=== PATIENT | male | born 1980 | race Caucasian/White ===

== ENCOUNTER 2017-05-17 17:36 | Emergency (ER) | payer OTHER ==
[~2017-05-17] VITALS: Ht 188 cm; Wt 110.0 kg
[~2017-05-17 17:36] MED LIST: Z.0.NO CURRENT MEDS
[2017-05-17 18:01] VITALS: BP 142/73; PULSE 104; RESP 17; TEMP 98.2; O2SAT 98
[2017-05-17] MEDS ORDERED: SODIUM CHLOR 0.9% 1000 ML INJ 1,000 ML IV ONE (19:10)
--- NOTE | 2017-05-17 19:12 | PD ---
HPI Chief Complaint: Flank/Kidney Pain Time Seen by Provider: 19:04 Travel History International Travel<30 days: No Contact w/Intl Traveler<30days: No Traveled to known affect area: No History of Present Illness HPI This is a 37-year-old male who presents for evaluation of bilateral flank pain. Symptoms started 4 days ago. The pain is sharp intermittent pain with no aggravating or alleviating factors. He reports that he passed a kidney stone 2 days ago with some relief. He reports a history of multiple kidney stones in the past, once requiring lithotripsy and was requiring ureteral stenting. He endorses a small amount of hematuria in the past 4 days. He endorses nausea. Denies vomiting, testicular scrotal pain, abdominal pain. He has not used any medication for symptom relief. He has no other complaints at this time. [facility] Past Medical History Kidney Stones: Yes Medical other: Yes (umbilical hernia ) Past Surgical History Abdominal Surgery: Yes (hernia ) Appendectomy: Yes Social History Alcohol Use: No Tobacco Use: Yes Substance Use: No Allergies-Medications (Allergen,Severity, Reaction): Coded Allergies: aspirin (Unverified Allergy, Severe, A CHILD, 05/17/17) Penicillins (Verified Allergy, Unknown, takes amoxicillan, 05/17/17) Reported Meds & Prescriptions Reported Meds & Active Scripts Active No Active Prescriptions or Reported Medications Review of Systems Except as stated in HPI: all other systems reviewed are Neg Physical Exam Narrative GENERAL: Well-developed well-nourished male in no acute distress SKIN: Warm and dry. HEAD: Atraumatic. Normocephalic. EYES: Pupils equal and round. No scleral icterus. No injection or drainage. ENT: No nasal bleeding or discharge. Mucous membranes pink and moist. NECK: Trachea midline. No JVD. CARDIOVASCULAR: Regular rate and rhythm. No murmur appreciated. RESPIRATORY: No accessory muscle use. Clear to auscultation. Breath sounds equal bilaterally. GASTROINTESTINAL: Abdomen soft, non-tender, nondistended. Hepatic and splenic margins not palpable. MUSCULOSKELETAL: No obvious deformities. No clubbing. No cyanosis. No edema. Bilateral CVA tenderness is present. NEUROLOGICAL: Awake and alert. No obvious cranial nerve deficits. Motor grossly within normal limits. Normal speech. PSYCHIATRIC: Appropriate mood and affect; insight and judgment normal. Data Data Last Documented VS Vital Signs Date Time Temp Pulse Resp B/P (MAP) Pulse Ox O2 Delivery O2 Flow Rate FiO2 05/17/17 18:01 98.2 104 17 142/73 (96) 98 Orders Orders Complete Blood Count With Diff (05/17/17 19:10) Comprehensive Metabolic Panel (05/17/17 19:10) Urinalysis - C+S If Indicated (05/17/17 19:10) Ct Abd/Pel W/O Iv Contrast (05/17/17 19:10) Ecg Monitoring (05/17/17 19:10) Iv Access Insert/Monitor (05/17/17 19:10) Ketorolac Inj (Toradol Inj) (05/17/17 19:15) Ondansetron Inj (Zofran Inj) (05/17/17 19:15) Sodium Chloride 0.9% Flush (Ns Flush) (05/17/17 19:15) Sodium Chlor 0.9% 1000 Ml Inj (Ns 1000 M (05/17/17 19:10) Labs Laboratory Tests Test 05/17/17 19:27 05/17/17 19:45 White Blood Count 12.7 TH/MM3 Red Blood Count 4.64 MIL/MM3 Hemoglobin 14.5 GM/DL Hematocrit 42.1 % Mean Corpuscular Volume 90.7 FL Mean Corpuscular Hemoglobin 31.2 PG Mean Corpuscular Hemoglobin Concent 34.4 % Red Cell Distribution Width 12.4 % Platelet Count 286 TH/MM3 Mean Platelet Volume 8.4 FL Neutrophils (%) (Auto) 62.1 % Lymphocytes (%) (Auto) 29.1 % Monocytes (%) (Auto) 7.0 % Eosinophils (%) (Auto) 1.4 % Basophils (%) (Auto) 0.4 % Neutrophils # (Auto) 7.9 TH/MM3 Lymphocytes # (Auto) 3.7 TH/MM3 Monocytes # (Auto) 0.9 TH/MM3 Eosinophils # (Auto) 0.2 TH/MM3 Basophils # (Auto) 0.0 TH/MM3 CBC Comment DIFF FINAL Differential Comment Blood Urea Nitrogen 17 MG/DL Creatinine 1.02 MG/DL Random Glucose 112 MG/DL Total Protein 7.0 GM/DL Albumin 3.7 GM/DL Calcium Level 9.2 MG/DL Alkaline Phosphatase 65 U/L Aspartate Amino Transf (AST/SGOT) 30 U/L Alanine Aminotransferase (ALT/SGPT) 37 U/L Total Bilirubin 0.3 MG/DL Sodium Level 140 MEQ/L Potassium Level 3.9 MEQ/L Chloride Level 106 MEQ/L Carbon Dioxide Level 27.2 MEQ/L Anion Gap 7 MEQ/L Estimat Glomerular Filtration Rate 82 ML/MIN Urine Color YELLOW Urine Turbidity CLEAR Urine pH 5.5 Urine Specific [place] 1.021 Urine Protein NEG mg/dL Urine Glucose (UA) NEG mg/dL Urine Ketones NEG mg/dL Urine Occult Blood NEG Urine Nitrite NEG Urine Bilirubin NEG Urine Urobilinogen LESS THAN 2.0 MG/DL Urine Leukocyte Esterase NEG Urine RBC LESS THAN 1 /hpf Urine WBC 1 /hpf Urine Squamous Epithelial Cells <1 /hpf Urine Bacteria RARE /hpf Microscopic Urinalysis Comment CULT NOT INDICATED MDM Medical Decision Making Medical Screen Exam Complete: Yes Emergency Medical Condition: Yes Medical Record Reviewed: Yes Differential Diagnosis Kidney stone, hydronephrosis, ureteral spasm, muscle spasm Narrative Course CONCLUSION: 1. No acute obstructive uropathy of either kidney. 2. There is a 2 mm nonobstructing stone of the left mid zone. 3. Numerous bilateral renal cysts and to the extent that autosomal dominant polycystic kidney disease should be included in the differential. No evidence of obstructing renal stones, could be that the patient is having ureteral spasm from previously passed stone based on his history. He is already aware of the multiple cysts on his kidneys. He was given a copy of his CT results. He is stable for discharge. Diagnosis Primary Impression: Bilateral flank pain Departure Forms: Tests/Procedures, Work Release Enter return to work date: May 19, 2017 Additional Instructions: Tylenol Motrin for pain, follow-up with primary care physician, return for any emergent medical conditions. Med/Other Pt SpecificInfo: No Change to Meds Scripts No Active Prescriptions or Reported Meds Disposition: DISCHARGE HOME Condition: Stable Jaleel Fisher May 17, 2017 19:12
[2017-05-17] MEDS ORDERED: KETOROLAC TROMETHAMINE 30 MG/ML (IVP) VIAL IV PUSH ONE (19:15)
[2017-05-17] MEDS ORDERED: SODIUM CHLORIDE 0.9% FLUSH 10 ML FLUSH IVF PRN (19:15)
[2017-05-17] MEDS ORDERED: ONDANSETRON HCL 4 MG/2 ML VIAL IV PUSH ONE (19:15)
[2017-05-17 19:38] LABS: AUTOMATED NEUTROPHIL # 7.9 TH/MM3 (1.8-7.7); BASOPHIL % 0.4 % (0.0-2.0); EOSINOPHIL # 0.2 TH/MM3 (0-0.4); EOSINOPHIL % 1.4 % (0.0-4.0); HEMATOCRIT 42.1 % (39.0-51.0); HEMOGLOBIN 14.5 GM/DL (13.0-17.0); LYMPH % 29.1 % (9.0-44.0); LYMPHOCYTE # 3.7 TH/MM3 (1.0-4.8); MEAN CELL VOLUME 90.7 FL (80.0-100.0); MEAN CORPUSCULAR HEMOGLOBIN 31.2 PG (27.0-34.0); MEAN CORPUSCULAR HGB CONC 34.4 % (32.0-36.0); MEAN PLATELET VOLUME 8.4 FL (7.0-11.0); MONOCYTE # 0.9 TH/MM3 (0-0.9); NEUT % 62.1 % (16.0-70.0); PLATELET COUNT 286 TH/MM3 (150-450); RED BLOOD COUNT 4.64 MIL/MM3 (4.50-5.90); RED CELL DISTRIBUTION WIDTH 12.4 % (11.6-17.2); WHITE BLOOD COUNT 12.7 TH/MM3 (4.0-11.0)
--- NOTE | 2017-05-17 19:53 | RADRPT ---
EXAM DATE/TIME: 05/17/2017 19:40 [facility] COMPARISON: No previous studies available for comparison. INDICATIONS : Bilateral flank pain. ORAL CONTRAST: No oral contrast ingested. RADIATION DOSE: 10.58 CTDIvol (mGy) MEDICAL HISTORY : Renal calculi. Hernia. SURGICAL HISTORY : Appendectomy. ENCOUNTER: Initial ACUITY: 1 day PAIN SCALE: 4/10 LOCATION: Bilateral flank TECHNIQUE: Volumetric scanning of the abdomen and pelvis was performed. Using automated exposure control and ad justment of the mA and/or kV according to patient size, radiation dose was kept as low as reasonably achievable to obtain optimal diagnostic quality images. DICOM format image data is available electro nically for review and comparison. FINDINGS: LOWER LUNGS: The visualized lower lungs are clear. LIVER: Homogeneous density without lesion. There is no dilation of the biliary tree. No calcified gallston es. SPLEEN: Normal size without lesion. PANCREAS: Within normal limits. KIDNEYS: There are numerous cysts of both kidneys measuring up to 3 cm on the right and up to 4.1 cm on the le ft. There is a 2 mm nonobstructing stone mid zone of the left kidney. No ureteral calculus, hydroneph rosis or hydroureter on either side. ADRENAL GLANDS: Within normal limits. VASCULAR: There is no aortic aneurysm. BOWEL/MESENTERY: The stomach, small bowel, and colon demonstrate no acute abnormality. There is no free intraperitone al air or fluid. ABDOMINAL WALL: Within normal limits. RETROPERITONEUM: There is no lymphadenopathy. BLADDER: No wall thickening or mass. REPRODUCTIVE: Within normal limits. INGUINAL: There is no lymphadenopathy or hernia. MUSCULOSKELETAL: Within normal limits for patient age. CONCLUSION: 1. No acute obstructive uropathy of either kidney. 2. There is a 2 mm nonobstructing stone of the left mid zone. 3. Numerous bilateral renal cysts and to the extent that autosomal dominant polycystic kidney disease should be included in the differential. Colt Osorio MD on May 17, 2017 at 19:48 Board Certified Radiologist. This report was verified electronically.
[2017-05-17 20:18] LABS: ALT (GPT) 37 U/L (12-78)
[2017-05-17 20:20] LABS: ALKALINE PHOSPHATASE 65 U/L (45-117); TOTAL BILIRUBIN ADULT 0.3 MG/DL (0.2-1.0)
[2017-05-17 20:22] LABS: BACTERIA, URINE RARE /hpf; BILIRUBIN, URINE NEG (NEG); BLOOD, URINE NEG (NEG); GLUCOSE,URINE NEG (NEG); KETONE, URINE NEG (NEG); NITRITE,URINE NEG (NEG); PH, URINE 5.5 (5.0-8.5); SQUAMOUS EPITHELIAL CELL URINE <1 /hpf (0-5); URINE COLOR YELLOW (YELLW/STRAW); URINE LEUKOCYTE ESTERASE NEG (NEG)
[2017-05-17 20:36] LABS: ALBUMIN 3.7 GM/DL (3.4-5.0); AST (GOT) 30 U/L (15-37); BICARBONATE 27.2 MEQ/L (21.0-32.0); BLOOD UREA NITROGEN 17 MG/DL (7-18); CALCIUM 9.2 MG/DL (8.5-10.1); CHLORIDE 106 MEQ/L (98-107); CREATININE 1.02 MG/DL (0.60-1.30); GLOMERULAR FILTRATION RATE 82 ML/MIN (>89); GLUCOSE,RANDOM 112 MG/DL (74-106); SODIUM (NA) 140 MEQ/L (136-145)
== END 2017-05-17 22:08 | disposition home or self-care (01) ==
LOC: NEPD 17:36
DX: N20.0 Calculus of kidney (principal); N28.1 Cyst of kidney, acquired; Z88.6 Allergy status to analgesic agent; Z88.0 Allergy status to penicillin; Z72.0 Tobacco use; Z87.442 Personal history of urinary calculi
CPT/HCPCS: 74176; 80053; 81001; 85025; 96361; 96374; 96375; 99284; J1885; J2405; J7030